=== PATIENT | female | born 1990 | race American Indian/Alaskan Native ===

== ENCOUNTER 2020-01-04 07:10 | Inpatient (IN) | payer MEDICAID ==
[2020-01-04] MEDS ORDERED: AMPICILLIN/NS 2 GM/100 ML 2 GM/100 ML BAG IV ONE (10:04)
[2020-01-04] MEDS ORDERED: fentaNYL 100 MCG/2 ML INJ IV PRN (10:04)
[2020-01-04] MEDS ORDERED: LIDOCAINE (2%) 20 MG/1 ML VIAL 20 ML MDV INFILTRATI ONE ×2 (10:04→19:37)
[2020-01-04] MEDS ORDERED: ePHEDrine SULFATE 50 MG/1 ML INJ IV PRN (10:04)
[2020-01-04] MEDS ORDERED: TERBUTALINE 1 MG/1 ML INJ SUB-Q PRN (10:04)
[2020-01-04] MEDS ORDERED: NalbUPHINE 10 MG/1 ML INJ IV PRN ×2 (10:04→13:39)
[2020-01-04] MEDS ORDERED: ONDANSETRON 4 MG/2 ML INJ IV PRN ×3 (10:04→23:17)
--- NOTE | 2020-01-04 10:05 | Ultrasound Report ---
ULTRASOUND OBSTETRIC INDICATION / CLINICAL INFORMATION: MIROSLAVA. Clinical Gestational Age (GA): TECHNIQUE: Transabdominal. COMPARISON: None available. FINDINGS: There is a single intrauterine . Heart Rate: 143 beats per minute. Estimated Weight in grams (if calculated): Estimated Weight Growth Percentile (if calculated): Position: cephalic. Amniotic Fluid Volume: Decreased Amniotic Fluid Index (MIROSLAVA) in cm (if calculated): 6.3. Maternal Adnexa: No significant abnormality. IMPRESSION: 1. Single, living intrauterine 2. MIROSLAVA 6.3 Signer Name: Bandar Love MD Signed: 01/04/2020 10:00 AM Workstation Name: [id number]
--- NOTE | 2020-01-04 10:14 | History and Physical Report ---
History of Present Illness Date of examination: 01/04/20 Date of admission: 01/04/20 10:04 Chief complaint: leaking fluid from vagina and contractions History of present illness: EDC Confirmation: 01/04/2020 Past History : 2 Term Births: 0 Premature Births: 0 Living Children: 0 Para: 0 Mult. Births: 0 Prev : 0 Prev. attempt? 0 Aborta: 1 Elect. Ab: 1 Spont. Ab: 0 Ectopics: 0 Past Medical History: Reviewed history from 12/25/2016 and no changes required: Dermoid cyst (2011) Past Surgical History: [facility] ovarian cystectomy(Dermoid) D&C: Past Medical History Surgery (Non-ob gyn): [facility] ovarian cystectomy(Dermoid) D&C: Abnormal PAP: negative RIC Exposure: negative Infertility: negative Uterine Anomaly: negative Uterine Surgery (not C/S): negative Other Gynecologic Problems: negative Social Hx: Patient is single Marital Status: single Children: Occupation: [employer] Smoking History: Patient has never smoked. Infection History HIV Risk Eval: no Hepatitis B Risk Eval: low risk Personal hx. of genital herpes: no Partner hx. of genital herpes: no TB Risk: no Genetic History Congenital Heart Defect: Ashly Disease: Thalassemia Mom: no Dad: no Neural Tube Defect Mom: no Dad: no Down's Syndrome Mom: no Dad: no Darrian-Sachs Mom: no Dad: no Sickle Cell Disease/Trait Mom: no Dad: no Hemophilia Mom: no Dad: no Muscular Dystrophy Mom: no Dad: no Cystic Fibrosis Mom: no Dad: no Benzie Chorea Mom: no Dad: no Mental Retardation Mom: no Dad: no Fragile X Mom: no Dad: no Other Genetic/Chromosomal Disorder Mom: no Dad: no Child w/other defect Mom: no Dad: no Active Medications (reviewed today): 19 ORAL TABLET CHEWABLE ( VIT-FE FUMARATE-FA) 1 po q day as directed Current Allergies (reviewed today): No known allergies Past History Past Medical History: other (see HPI) Past Surgical History: other (see HPI) 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: other (see HPI) - Obstetrical History Expected Date of Delivery: 01/04/20 Actual Gestation: 40 Week(s) 0 Day(s) : 2 Para: 0 Hx # Term Pregnancies: 0 Number of Pregnancies: 0 Spontaneous Abortions: 0 Induced : 1 Number of Living Children: 0 Medications and Allergies Allergies Allergy/AdvReac Type Severity Reaction Status Date / Time No Known Allergies Allergy Verified 01/04/20 08:02 Active Meds: Active Medications Ephedrine Sulfate (Ephedrine Sulfate) 10 mg IV Q2M PRN PRN Reason: Hypotension Fentanyl (Sublimaze) 100 mcg IV Q2H PRN PRN Reason: Pain,Severe (7-10) LABOR PAIN Oxytocin/Sodium Chloride (Pitocin/Ns 30 Unit/500ml) 30 units in 500 mls @ 4 mls/hr IV TITR TAMARA; Protocol Lactated Ringer's (Lactated Ringers) 1,000 mls @ 125 mls/hr IV DIRECT TAMARA Oxytocin/Sodium Chloride (Pitocin/Ns 30 Unit/500ml) 30 units in 500 mls @ 40 mls/hr IV TITR TAMARA; Protocol Ampicillin Sodium (Ampicillin/Ns 1 Gm/50 Ml) 1 gm in 50 mls @ 100 mls/hr IV Q4HR TAMARA; Protocol Ampicillin Sodium (Ampicillin/Ns 2 Gm/100 Ml) 2 gm in 100 mls @ 100 mls/hr IV ONCE ONE; Protocol Stop: 01/04/20 11:03 Lidocaine (Xylocaine 2%) 20 ml INFILTRATI ONCE ONE Stop: 01/04/20 10:05 Mineral Oil (Mineral Oil) 30 ml PO QHS PRN PRN Reason: Constipation Nalbuphine HCl (Nalbuphine) 10 mg IV Q2H PRN PRN Reason: Pain, Moderate (4-6) Ondansetron HCl (Zofran) 4 mg IV Q8H PRN PRN Reason: Nausea And Vomiting Terbutaline Sulfate (Brethine) 0.25 mg SUB-Q ONCE PRN PRN Reason: Hyperstimulation/Hypertonicity Review of Systems All systems: negative - Vital Signs Vital signs: Vital Signs Pulse BP 96 H 113/64 01/04/20 07:55 01/04/20 07:55 Temp Pulse Resp BP Pulse Ox 94 H 113/64 99 01/04/20 09:57 01/04/20 07:55 01/04/20 09:57 - Physical Exam Breasts: Positive: normal Cardiovascular: Regular rate Lungs: Positive: Normal air movement Abdomen: Positive: normal appearance, soft Genitourinary (Female): Positive: normal external genitalia, normal perenium Vulva: both: normal Vagina: Positive: normal moisture Uterus: Positive: normal size Anus/Rectum: Positive: normal perianal skin Extremities: Positive: normal - Obstetrical FHR: category 1 Uterine Contraction Monitor Mode: External Cervical Dilatation: 2 Cervical Effacement Percentage: 50 station: -3 Uterine Contraction Pattern: Regular Uterine Tone Measurement Phase: Contraction Uterine Contraction Intensity: Mild Results All other labs normal. Assessment and Plan 29y/o @ 40+0 weeks, admitted for labor and probable SROM (possible forebag or slow leak, pt reports bed wet with clear fluid his morning, MIROSLAVA 6), GBS + Admission orders in EMR. - Patient Problems (1) SROM (spontaneous rupture of membranes) Current Visit: Yes Status: Acute Plan to address problem: leaking, MIROSLAVA <7, GBS + (2) 40 weeks gestation of Current Visit: Yes Status: Acute (3) GBS (group B Streptococcus carrier), +RV culture, currently Current Visit: Yes Status: Acute Plan to address problem: Ampicillin q4h until delivery
[2020-01-04] MEDS ORDERED: OXYTOCIN DRIP 30 UNITS/500 ML BAG IV SCH ×3 (11:00→23:17)
[2020-01-04 11:24] LABS: Hemoglobin 9.7 gm/dl (10.1-14.3); Red Cell Distribution Width 18.9 % (13.2-15.2)
[2020-01-04 11:36] LABS: Hematocrit 31.3 % (30.3-42.9); Mean Corpuscular HGB Conc 31 % (30-34); Platelet Count 217 K/mm3 (140-440); Red Blood Count 4.56 M/mm3 (3.65-5.03)
[2020-01-04] MEDS: LACTATED RINGERS 1,000 ML IV SCH ×3 (11:40→18:30)
[2020-01-04 11:45] LABS: Mean Corpuscular Volume 69 fl (79-97)
[2020-01-04] MEDS ORDERED: DEXMEDETOMIDINE 200 MCG/2 ML VIAL IV ONE (13:20)
--- NOTE | 2020-01-04 13:37 | Anesthesia Consultation ---
Anesthesia Consult and Med Hx Date of service: 01/04/20 - Airway Anesthetic Teeth Evaluation: Good ROM Head & Neck: Adequate Mental/Hyoid Distance: Adequate Mallampati Class: Class II Intubation Access Assessment: Good - Pulmonary Exam CTA: Yes - Cardiac Exam Cardiac Exam: RRR - Pre-Operative Health Status ASA Pre-Surgery Classification: ASA2 Proposed Anesthetic Plan: Epidural - Pulmonary Hx Smoking: No Hx Asthma: No Hx Sleep Apnea: No - Cardiovascular System Hx Hypertension: No - Central Nervous System Hx Seizures: No Hx Psychiatric Problems: No - Gastrointestinal Hx Gastroesophageal Reflux Disease: No - Endocrine Hx Renal Disease: No Hx Hypothyroidism: No - Hematic Hx Anemia: No Hx Sickle Cell Disease: No - Other Systems Hx Alcohol Use: No
--- NOTE | 2020-01-04 13:38 | Progress Note ---
Labor Epidural - Labor Epidural Start Time: 13:25 Stop Time: 13:40 Performed by:: MARIO DUMONT ([facility]) Procedure: Patient is requesting a laboring epidural for laboring pain. Patient IDed, H&P reviewed, all questions and concerns were answered, and consent was signed. Timeout was performed at bedside. Patient in sitting position. Sterile prep and drape was performed. 3ml of 1% lidocaine skin wheal at L[3]- L [4]. 18- gauge Touhy epidural needle was advanced to loss of resistance with air technique. Negative CSF negative blood. Epidural catheter advanced to [12] centimeters. [-] Aspiration [-] test dose. Sterile dressing applied. Patient tolerated procedure.
[2020-01-04] MEDS ORDERED: NALOXONE 2 MG/2 ML INJ IV PRN (13:39)
[2020-01-04] MEDS ORDERED: diphenhydrAMINE 50 MG/ML VIAL IV PRN (13:39)
[2020-01-04] MEDS ORDERED: fentaNYL-BUPIV 2 MCG/ML-0.125% 200 MCG/100 ML BAG EPIDURAL SCH (14:00)
--- NOTE | 2020-01-04 14:27 | Progress Note ---
Assessment and Plan Patient comfortable after epidural placement. clear fluid very minimum noted. IUPC and ISE placed without complications. Peanut ball in place patient is in extreme right lateral lateral position. Pitocin started 4x4 every 30 mins. Anticipate vaginal delivery Issa Perrin-EMERY Au - Patient Problems (1) SROM (spontaneous rupture of membranes) Current Visit: Yes Status: Acute (2) 40 weeks gestation of Current Visit: Yes Status: Acute (3) GBS (group B Streptococcus carrier), +RV culture, currently Current Visit: Yes Status: Acute Subjective - Subjective Date of service: 01/04/20 Interval history: EDC Confirmation: 01/04/2020 Past History : 2 Term Births: 0 Premature Births: 0 Living Children: 0 Para: 0 Mult. Births: 0 Prev : 0 Prev. attempt? 0 Aborta: 1 Elect. Ab: 1 Spont. Ab: 0 Ectopics: 0 Past Medical History: Reviewed history from 12/25/2016 and no changes required: Dermoid cyst (2011) Past Surgical History: [facility] ovarian cystectomy(Dermoid) D&C: Past Medical History Surgery (Non-web design specialist): [facility] ovarian cystectomy(Dermoid) D&C: Abnormal PAP: negative RIC Exposure: negative Infertility: negative Uterine Anomaly: negative Uterine Surgery (not C/S): negative Other Gynecologic Problems: negative Social Hx: Patient is single Marital Status: single Children: Occupation: [employer] Smoking History: Patient has never smoked. Infection History HIV Risk Eval: no Hepatitis B Risk Eval: low risk Personal hx. of genital herpes: no Partner hx. of genital herpes: no TB Risk: no Genetic History Congenital Heart Defect: Ashly Disease: Thalassemia Mom: no Dad: no Neural Tube Defect Mom: no Dad: no Down's Syndrome Mom: no Dad: no Darrian-Sachs Mom: no Dad: no Sickle Cell Disease/Trait Mom: no Dad: no Hemophilia Mom: no Dad: no Muscular Dystrophy Mom: no Dad: no Cystic Fibrosis Mom: no Dad: no Clover Chorea Mom: no Dad: no Mental Retardation Mom: no Dad: no Fragile X Mom: no Dad: no Other Genetic/Chromosomal Disorder Mom: no Dad: no Child w/other defect Mom: no Dad: no Active Medications (reviewed today): 19 ORAL TABLET CHEWABLE ( VIT-FE FUMARATE-FA) 1 po q day as directed Current Allergies (reviewed today): No known allergies Patient reports: loss of fluid, movement normal Objective - Vital Signs Vital Signs: Vital Signs - 12hr 01/04/20 01/04/20 01/04/20 07:55 07:57 08:02 Temperature 98.1 F Pulse Rate 96 H 95 H 86 Respiratory 18 Rate Blood Pressure 113/64 Blood Pressure [Left] O2 Sat by Pulse 100 100 99 Oximetry 01/04/20 01/04/20 01/04/20 08:07 08:12 08:17 Temperature Pulse Rate 93 H 89 88 Respiratory Rate Blood Pressure Blood Pressure [Left] O2 Sat by Pulse 100 99 99 Oximetry 01/04/20 01/04/20 01/04/20 08:22 08:27 08:32 Temperature Pulse Rate 106 H 92 H 106 H Respiratory Rate Blood Pressure Blood Pressure [Left] O2 Sat by Pulse 98 100 99 Oximetry 01/04/20 01/04/20 01/04/20 08:37 08:42 08:47 Temperature Pulse Rate 97 H 99 H 97 H Respiratory Rate Blood Pressure Blood Pressure [Left] O2 Sat by Pulse 99 100 100 Oximetry 01/04/20 01/04/20 01/04/20 08:52 08:57 09:02 Temperature Pulse Rate 104 H 96 H 90 Respiratory Rate Blood Pressure Blood Pressure [Left] O2 Sat by Pulse 98 99 100 Oximetry 01/04/20 01/04/20 01/04/20 09:07 09:12 09:17 Temperature Pulse Rate 95 H 95 H 95 H Respiratory Rate Blood Pressure Blood Pressure [Left] O2 Sat by Pulse 99 99 99 Oximetry 01/04/20 01/04/20 01/04/20 09:22 09:27 09:32 Temperature Pulse Rate 99 H 88 101 H Respiratory Rate Blood Pressure Blood Pressure [Left] O2 Sat by Pulse 99 99 99 Oximetry 01/04/20 01/04/20 01/04/20 09:37 09:42 09:47 Temperature Pulse Rate 92 H 88 86 Respiratory Rate Blood Pressure Blood Pressure [Left] O2 Sat by Pulse 99 99 99 Oximetry 01/04/20 01/04/20 01/04/20 09:52 09:57 10:00 Temperature 98.4 F Pulse Rate 91 H 94 H 94 H Respiratory 16 Rate Blood Pressure Blood Pressure 111/66 [Left] O2 Sat by Pulse 99 99 98 Oximetry 01/04/20 01/04/20 01/04/20 10:33 10:34 10:39 Temperature Pulse Rate 89 81 93 H Respiratory Rate Blood Pressure Blood Pressure [Left] O2 Sat by Pulse 94 99 98 Oximetry 01/04/20 01/04/20 01/04/20 10:44 10:49 10:54 Temperature Pulse Rate 83 84 85 Respiratory Rate Blood Pressure Blood Pressure [Left] O2 Sat by Pulse 97 98 99 Oximetry 01/04/20 01/04/20 01/04/20 10:59 11:04 11:58 Temperature Pulse Rate 87 90 99 H Respiratory Rate Blood Pressure Blood Pressure [Left] O2 Sat by Pulse 99 98 99 Oximetry 01/04/20 01/04/20 01/04/20 12:03 12:08 12:13 Temperature Pulse Rate 88 68 91 H Respiratory Rate Blood Pressure Blood Pressure [Left] O2 Sat by Pulse 98 75 L 97 Oximetry 01/04/20 01/04/20 01/04/20 12:15 12:18 12:21 Temperature Pulse Rate 103 H 86 117 H Respiratory Rate Blood Pressure Blood Pressure [Left] O2 Sat by Pulse 87 98 89 Oximetry 01/04/20 01/04/20 01/04/20 12:23 12:28 12:33 Temperature Pulse Rate 93 H 123 H 87 Respiratory Rate Blood Pressure Blood Pressure [Left] O2 Sat by Pulse 99 99 98 Oximetry 01/04/20 01/04/20 01/04/20 12:38 12:40 12:43 Temperature Pulse Rate 92 H 120 H 94 H Respiratory Rate Blood Pressure Blood Pressure [Left] O2 Sat by Pulse 99 93 99 Oximetry 01/04/20 01/04/20 01/04/20 12:48 12:53 12:58 Temperature Pulse Rate 98 H 91 H 94 H Respiratory Rate Blood Pressure Blood Pressure [Left] O2 Sat by Pulse 99 99 98 Oximetry 01/04/20 01/04/20 01/04/20 13:03 13:07 13:08 Temperature Pulse Rate 112 H 109 H 104 H Respiratory Rate Blood Pressure Blood Pressure [Left] O2 Sat by Pulse 100 92 99 Oximetry 01/04/20 01/04/20 01/04/20 13:13 13:18 13:23 Temperature Pulse Rate 102 H 80 120 H Respiratory Rate Blood Pressure Blood Pressure [Left] O2 Sat by Pulse 100 98 98 Oximetry 01/04/20 01/04/20 01/04/20 13:27 13:28 13:29 Temperature Pulse Rate 110 H 85 102 H Respiratory Rate Blood Pressure 118/74 119/68 Blood Pressure [Left] O2 Sat by Pulse 78 L 78 L Oximetry 01/04/20 01/04/20 01/04/20 13:31 13:33 13:35 Temperature Pulse Rate 106 H 102 H 106 H Respiratory Rate Blood Pressure 120/77 119/72 124/73 Blood Pressure [Left] O2 Sat by Pulse 99 Oximetry 01/04/20 01/04/20 01/04/20 13:38 13:40 13:41 Temperature Pulse Rate 102 H 103 H 94 H Respiratory Rate Blood Pressure 125/58 109/50 97/55 Blood Pressure [Left] O2 Sat by Pulse 100 Oximetry 01/04/20 01/04/20 01/04/20 13:43 13:44 13:46 Temperature Pulse Rate 94 H 99 H 93 H Respiratory Rate Blood Pressure 89/49 84/55 Blood Pressure [Left] O2 Sat by Pulse 99 Oximetry 01/04/20 01/04/20 01/04/20 13:48 13:50 13:51 Temperature Pulse Rate 91 H 85 88 Respiratory Rate Blood Pressure 82/43 85/48 Blood Pressure [Left] O2 Sat by Pulse 98 Oximetry 01/04/20 01/04/20 01/04/20 13:53 13:57 13:58 Temperature Pulse Rate 104 H 95 H 110 H Respiratory Rate Blood Pressure 91/52 Blood Pressure [Left] O2 Sat by Pulse 98 99 Oximetry 01/04/20 01/04/20 01/04/20 14:02 14:03 14:07 Temperature Pulse Rate 106 H 105 H 111 H Respiratory Rate Blood Pressure 97/51 116/66 Blood Pressure [Left] O2 Sat by Pulse 99 Oximetry 01/04/20 01/04/20 01/04/20 14:08 14:12 14:13 Temperature Pulse Rate 103 H 100 H 112 H Respiratory Rate Blood Pressure 113/65 Blood Pressure [Left] O2 Sat by Pulse 99 99 Oximetry - Exam Breasts: deferred Cardiovascular: Regular rate Lungs: Normal air movement Abdomen: Present: normal appearance, soft, normal bowel sounds Vulva: both: normal Uterus: Present: normal, firm FHR: category 1 Uterine Contraction Monitor Mode: Internal Cervical Dilatation: 4 Cervical Effacement Percentage: 70 station: -1 Uterine Contraction Pattern: Regular - Labs Labs: Abnormal Labs 01/04/20 10:59 WBC 13.3 H Hgb 9.7 L MCV 69 L MCH 21 L RDW 18.9 H Laboratory Results - last 24 hr 01/04/20 01/04/20 01/04/20 10:59 10:59 10:59 WBC 13.3 H RBC 4.56 Hgb 9.7 L Hct 31.3 MCV 69 L MCH 21 L MCHC 31 RDW 18.9 H Plt Count 217 Syphilis IgG Antibody Nonreactive Blood Type O POSITIVE Antibody Screen Negative
[2020-01-04] MEDS: AMPICILLIN/NS 1 GM/50 ML 1 GM/50 ML BAG IV SCH ×2 (14:39→18:31)
--- NOTE | 2020-01-04 17:31 | Progress Note ---
Assessment and Plan pt is complete and pushing with ctx, early decels noted with most ctx, occasional variable with spontaneous resolution. moderate variability. - Patient Problems (1) SROM (spontaneous rupture of membranes) Current Visit: Yes Status: Acute (2) 40 weeks gestation of Current Visit: Yes Status: Acute (3) GBS (group B Streptococcus carrier), +RV culture, currently Current Visit: Yes Status: Acute Subjective - Subjective Date of service: 01/04/20 Interval history: EDC Confirmation: 01/04/2020 Past History : 2 Term Births: 0 Premature Births: 0 Living Children: 0 Para: 0 Mult. Births: 0 Prev : 0 Prev. attempt? 0 Aborta: 1 Elect. Ab: 1 Spont. Ab: 0 Ectopics: 0 Past Medical History: Reviewed history from 12/25/2016 and no changes required: Dermoid cyst (2011) Past Surgical History: Lsc ovarian cystectomy(Dermoid) D&C: Past Medical History Surgery (Non-catering convention services manager): [facility]sc ovarian cystectomy(Dermoid) D&C: Abnormal PAP: negative RIC Exposure: negative Infertility: negative Uterine Anomaly: negative Uterine Surgery (not C/S): negative Other Gynecologic Problems: negative Social Hx: Patient is single Marital Status: single Children: Occupation: [employer] Smoking History: Patient has never smoked. Infection History HIV Risk Eval: no Hepatitis B Risk Eval: low risk Personal hx. of genital herpes: no Partner hx. of genital herpes: no TB Risk: no Genetic History Congenital Heart Defect: Ashly Disease: Thalassemia Mom: no Dad: no Neural Tube Defect Mom: no Dad: no Down's Syndrome Mom: no Dad: no Darrian-Sachs Mom: no Dad: no Sickle Cell Disease/Trait Mom: no Dad: no Hemophilia Mom: no Dad: no Muscular Dystrophy Mom: no Dad: no Cystic Fibrosis Mom: no Dad: no [place] Chorea Mom: no Dad: no Mental Retardation Mom: no Dad: no Fragile X Mom: no Dad: no Other Genetic/Chromosomal Disorder Mom: no Dad: no Child w/other defect Mom: no Dad: no Active Medications (reviewed today): 19 ORAL TABLET CHEWABLE ( VIT-FE FUMARATE-FA) 1 po q day as directed Current Allergies (reviewed today): No known allergies Patient reports: new complaints (comfortable with epidural, feeling rectal pressure) Objective - Vital Signs Vital Signs: Vital Signs - 12hr 01/04/20 01/04/20 01/04/20 07:55 07:57 08:02 Temperature 98.1 F Pulse Rate 96 H 95 H 86 Respiratory 18 Rate Blood Pressure 113/64 Blood Pressure [Left] O2 Sat by Pulse 100 100 99 Oximetry 01/04/20 01/04/20 01/04/20 08:07 08:12 08:17 Temperature Pulse Rate 93 H 89 88 Respiratory Rate Blood Pressure Blood Pressure [Left] O2 Sat by Pulse 100 99 99 Oximetry 01/04/20 01/04/20 01/04/20 08:22 08:27 08:32 Temperature Pulse Rate 106 H 92 H 106 H Respiratory Rate Blood Pressure Blood Pressure [Left] O2 Sat by Pulse 98 100 99 Oximetry 01/04/20 01/04/20 01/04/20 08:37 08:42 08:47 Temperature Pulse Rate 97 H 99 H 97 H Respiratory Rate Blood Pressure Blood Pressure [Left] O2 Sat by Pulse 99 100 100 Oximetry 01/04/20 01/04/20 01/04/20 08:52 08:57 09:02 Temperature Pulse Rate 104 H 96 H 90 Respiratory Rate Blood Pressure Blood Pressure [Left] O2 Sat by Pulse 98 99 100 Oximetry 01/04/20 01/04/20 01/04/20 09:07 09:12 09:17 Temperature Pulse Rate 95 H 95 H 95 H Respiratory Rate Blood Pressure Blood Pressure [Left] O2 Sat by Pulse 99 99 99 Oximetry 01/04/20 01/04/20 01/04/20 09:22 09:27 09:32 Temperature Pulse Rate 99 H 88 101 H Respiratory Rate Blood Pressure Blood Pressure [Left] O2 Sat by Pulse 99 99 99 Oximetry 01/04/20 01/04/20 01/04/20 09:37 09:42 09:47 Temperature Pulse Rate 92 H 88 86 Respiratory Rate Blood Pressure Blood Pressure [Left] O2 Sat by Pulse 99 99 99 Oximetry 01/04/20 01/04/20 01/04/20 09:52 09:57 10:00 Temperature 98.4 F Pulse Rate 91 H 94 H 94 H Respiratory 16 Rate Blood Pressure Blood Pressure 111/66 [Left] O2 Sat by Pulse 99 99 98 Oximetry 01/04/20 01/04/20 01/04/20 10:33 10:34 10:39 Temperature Pulse Rate 89 81 93 H Respiratory Rate Blood Pressure Blood Pressure [Left] O2 Sat by Pulse 94 99 98 Oximetry 01/04/20 01/04/20 01/04/20 10:44 10:49 10:54 Temperature Pulse Rate 83 84 85 Respiratory Rate Blood Pressure Blood Pressure [Left] O2 Sat by Pulse 97 98 99 Oximetry 01/04/20 01/04/20 01/04/20 10:59 11:04 11:58 Temperature Pulse Rate 87 90 99 H Respiratory Rate Blood Pressure Blood Pressure [Left] O2 Sat by Pulse 99 98 99 Oximetry 01/04/20 01/04/20 01/04/20 12:03 12:08 12:13 Temperature Pulse Rate 88 68 91 H Respiratory Rate Blood Pressure Blood Pressure [Left] O2 Sat by Pulse 98 75 L 97 Oximetry 01/04/20 01/04/20 01/04/20 12:15 12:18 12:21 Temperature Pulse Rate 103 H 86 117 H Respiratory Rate Blood Pressure Blood Pressure [Left] O2 Sat by Pulse 87 98 89 Oximetry 01/04/20 01/04/20 01/04/20 12:23 12:28 12:33 Temperature Pulse Rate 93 H 123 H 87 Respiratory Rate Blood Pressure Blood Pressure [Left] O2 Sat by Pulse 99 99 98 Oximetry 01/04/20 01/04/20 01/04/20 12:38 12:40 12:43 Temperature Pulse Rate 92 H 120 H 94 H Respiratory Rate Blood Pressure Blood Pressure [Left] O2 Sat by Pulse 99 93 99 Oximetry 01/04/20 01/04/20 01/04/20 12:48 12:53 12:58 Temperature Pulse Rate 98 H 91 H 94 H Respiratory Rate Blood Pressure Blood Pressure [Left] O2 Sat by Pulse 99 99 98 Oximetry 01/04/20 01/04/20 01/04/20 13:03 13:07 13:08 Temperature Pulse Rate 112 H 109 H 104 H Respiratory Rate Blood Pressure Blood Pressure [Left] O2 Sat by Pulse 100 92 99 Oximetry 01/04/20 01/04/20 01/04/20 13:13 13:18 13:23 Temperature Pulse Rate 102 H 80 120 H Respiratory Rate Blood Pressure Blood Pressure [Left] O2 Sat by Pulse 100 98 98 Oximetry 01/04/20 01/04/20 01/04/20 13:27 13:28 13:29 Temperature Pulse Rate 110 H 85 102 H Respiratory Rate Blood Pressure 118/74 119/68 Blood Pressure [Left] O2 Sat by Pulse 78 L 78 L Oximetry 01/04/20 01/04/20 01/04/20 13:31 13:33 13:35 Temperature Pulse Rate 106 H 102 H 106 H Respiratory Rate Blood Pressure 120/77 119/72 124/73 Blood Pressure [Left] O2 Sat by Pulse 99 Oximetry 01/04/20 01/04/20 01/04/20 13:38 13:40 13:41 Temperature Pulse Rate 102 H 103 H 94 H Respiratory Rate Blood Pressure 125/58 109/50 97/55 Blood Pressure [Left] O2 Sat by Pulse 100 Oximetry 01/04/20 01/04/20 01/04/20 13:43 13:44 13:46 Temperature Pulse Rate 94 H 99 H 93 H Respiratory Rate Blood Pressure 89/49 84/55 Blood Pressure [Left] O2 Sat by Pulse 99 Oximetry 01/04/20 01/04/20 01/04/20 13:48 13:50 13:51 Temperature Pulse Rate 91 H 85 88 Respiratory Rate Blood Pressure 82/43 85/48 Blood Pressure [Left] O2 Sat by Pulse 98 Oximetry 01/04/20 01/04/20 01/04/20 13:53 13:57 13:58 Temperature Pulse Rate 104 H 95 H 110 H Respiratory Rate Blood Pressure 91/52 Blood Pressure [Left] O2 Sat by Pulse 98 99 Oximetry 01/04/20 01/04/20 01/04/20 14:02 14:03 14:07 Temperature Pulse Rate 106 H 105 H 111 H Respiratory Rate Blood Pressure 97/51 116/66 Blood Pressure [Left] O2 Sat by Pulse 99 Oximetry 01/04/20 01/04/20 01/04/20 14:08 14:12 14:13 Temperature Pulse Rate 103 H 100 H 112 H Respiratory Rate Blood Pressure 113/65 Blood Pressure [Left] O2 Sat by Pulse 99 99 Oximetry 01/04/20 01/04/20 01/04/20 14:18 14:23 14:28 Temperature Pulse Rate 110 H 105 H 105 H Respiratory Rate Blood Pressure 118/71 Blood Pressure [Left] O2 Sat by Pulse 98 98 98 Oximetry 01/04/20 01/04/20 01/04/20 14:34 14:39 14:44 Temperature Pulse Rate 101 H 97 H 103 H Respiratory Rate Blood Pressure 100/51 Blood Pressure [Left] O2 Sat by Pulse 99 99 98 Oximetry 01/04/20 01/04/20 01/04/20 14:49 14:50 14:54 Temperature Pulse Rate 98 H 96 H 101 H Respiratory Rate Blood Pressure 118/77 Blood Pressure [Left] O2 Sat by Pulse 100 99 Oximetry 01/04/20 01/04/20 01/04/20 14:59 15:04 15:09 Temperature Pulse Rate 93 H 94 H 100 H Respiratory Rate Blood Pressure 108/66 Blood Pressure [Left] O2 Sat by Pulse 99 98 99 Oximetry 01/04/20 01/04/20 01/04/20 15:14 15:18 15:19 Temperature Pulse Rate 95 H 99 H 104 H Respiratory Rate Blood Pressure 99/61 Blood Pressure [Left] O2 Sat by Pulse 98 99 Oximetry 01/04/20 01/04/20 01/04/20 15:24 15:29 15:33 Temperature Pulse Rate 126 H 116 H 97 H Respiratory Rate Blood Pressure 107/68 Blood Pressure [Left] O2 Sat by Pulse 99 100 Oximetry 01/04/20 01/04/20 01/04/20 15:34 15:39 15:44 Temperature Pulse Rate 86 98 H 98 H Respiratory Rate Blood Pressure Blood Pressure [Left] O2 Sat by Pulse 100 100 100 Oximetry 01/04/20 01/04/20 01/04/20 15:49 15:54 15:59 Temperature Pulse Rate 94 H 82 92 H Respiratory Rate Blood Pressure 107/63 Blood Pressure [Left] O2 Sat by Pulse 100 100 100 Oximetry 01/04/20 01/04/20 01/04/20 16:03 16:04 16:09 Temperature Pulse Rate 99 H 94 H 95 H Respiratory Rate Blood Pressure 100/57 Blood Pressure [Left] O2 Sat by Pulse 100 100 Oximetry 01/04/20 01/04/20 01/04/20 16:14 16:19 16:20 Temperature Pulse Rate 119 H 95 H 114 H Respiratory Rate Blood Pressure 134/65 Blood Pressure [Left] O2 Sat by Pulse 100 100 90 Oximetry 01/04/20 01/04/20 01/04/20 16:24 16:29 16:34 Temperature Pulse Rate 102 H 82 92 H Respiratory Rate Blood Pressure 110/70 Blood Pressure [Left] O2 Sat by Pulse 100 100 100 Oximetry 01/04/20 01/04/20 01/04/20 16:39 16:44 16:48 Temperature Pulse Rate 82 85 87 Respiratory Rate Blood Pressure 110/67 Blood Pressure [Left] O2 Sat by Pulse 100 100 Oximetry 01/04/20 01/04/20 01/04/20 16:49 16:54 16:59 Temperature Pulse Rate 90 89 96 H Respiratory Rate Blood Pressure Blood Pressure [Left] O2 Sat by Pulse 100 100 100 Oximetry 01/04/20 01/04/20 01/04/20 17:03 17:04 17:09 Temperature Pulse Rate 88 99 H 82 Respiratory Rate Blood Pressure 110/65 Blood Pressure [Left] O2 Sat by Pulse 100 100 Oximetry 01/04/20 01/04/20 01/04/20 17:14 17:16 17:18 Temperature Pulse Rate 98 H 99 H 113 H Respiratory Rate Blood Pressure 104/63 Blood Pressure [Left] O2 Sat by Pulse 100 91 Oximetry 01/04/20 01/04/20 01/04/20 17:19 17:23 17:24 Temperature Pulse Rate 101 H 102 H 116 H Respiratory Rate Blood Pressure Blood Pressure [Left] O2 Sat by Pulse 100 72 L 100 Oximetry - Exam Breasts: normal Cardiovascular: Regular rate Lungs: Normal air movement Abdomen: Present: normal appearance, soft Vulva: both: normal Uterus: Present: normal, firm, fundal height above umbilicus FHR: category 2 Uterine Contraction Monitor Mode: Internal Cervical Dilatation: 10 Cervical Effacement Percentage: 100 station: 0 Uterine Contraction Frequency (min): 2-3 Uterine Contraction Duration: 60 Uterine Contraction Pattern: Regular Uterine Tone Measurement Phase: Contraction Uterine Contraction Intensity: Strong/Firm Extremities: normal - Labs Labs: Abnormal Labs 01/04/20 10:59 WBC 13.3 H Hgb 9.7 L MCV 69 L MCH 21 L RDW 18.9 H Laboratory Results - last 24 hr 01/04/20 01/04/20 01/04/20 10:59 10:59 10:59 WBC 13.3 H RBC 4.56 Hgb 9.7 L Hct 31.3 MCV 69 L MCH 21 L MCHC 31 RDW 18.9 H Plt Count 217 Syphilis IgG Antibody Nonreactive Blood Type O POSITIVE Antibody Screen Negative
--- NOTE | 2020-01-04 17:44 | Progress Note ---
Assessment and Plan after attempting to push with ctx, cervix noted all around baby's head. Cervix very soft and pliable. Pt repositioned and will allow more time to progress as long as FHT are reassuring. - Patient Problems (1) SROM (spontaneous rupture of membranes) Current Visit: Yes Status: Acute (2) 40 weeks gestation of Current Visit: Yes Status: Acute (3) GBS (group B Streptococcus carrier), +RV culture, currently Current Visit: Yes Status: Acute Subjective - Subjective Date of service: 01/04/20 Interval history: EDC Confirmation: 01/04/2020 Past History : 2 Term Births: 0 Premature Births: 0 Living Children: 0 Para: 0 Mult. Births: 0 Prev : 0 Prev. attempt? 0 Aborta: 1 Elect. Ab: 1 Spont. Ab: 0 Ectopics: 0 Past Medical History: Reviewed history from 12/25/2016 and no changes required: Dermoid cyst (2011) Past Surgical History: [facility]sc ovarian cystectomy(Dermoid) D&C: Past Medical History Surgery (Non-color sprayer): Lsc ovarian cystectomy(Dermoid) D&C: Abnormal PAP: negative RIC Exposure: negative Infertility: negative Uterine Anomaly: negative Uterine Surgery (not C/S): negative Other Gynecologic Problems: negative Social Hx: Patient is single Marital Status: single Children: Occupation: [employer] Smoking History: Patient has never smoked. Infection History HIV Risk Eval: no Hepatitis B Risk Eval: low risk Personal hx. of genital herpes: no Partner hx. of genital herpes: no TB Risk: no Genetic History Congenital Heart Defect: Ashly Disease: Thalassemia Mom: no Dad: no Neural Tube Defect Mom: no Dad: no Down's Syndrome Mom: no Dad: no Darrian-Sachs Mom: no Dad: no Sickle Cell Disease/Trait Mom: no Dad: no Hemophilia Mom: no Dad: no Muscular Dystrophy Mom: no Dad: no Cystic Fibrosis Mom: no Dad: no [place] Chorea Mom: no Dad: no Mental Retardation Mom: no Dad: no Fragile X Mom: no Dad: no Other Genetic/Chromosomal Disorder Mom: no Dad: no Child w/other defect Mom: no Dad: no Active Medications (reviewed today): 19 ORAL TABLET CHEWABLE ( VIT-FE FUMARATE-FA) 1 po q day as directed Current Allergies (reviewed today): No known allergies Patient reports: new complaints (comfortable with epidural, feeling rectal pressure) Objective - Vital Signs Vital Signs: Vital Signs - 12hr 01/04/20 01/04/20 01/04/20 07:55 07:57 08:02 Temperature 98.1 F Pulse Rate 96 H 95 H 86 Respiratory 18 Rate Blood Pressure 113/64 Blood Pressure [Left] O2 Sat by Pulse 100 100 99 Oximetry 01/04/20 01/04/20 01/04/20 08:07 08:12 08:17 Temperature Pulse Rate 93 H 89 88 Respiratory Rate Blood Pressure Blood Pressure [Left] O2 Sat by Pulse 100 99 99 Oximetry 01/04/20 01/04/20 01/04/20 08:22 08:27 08:32 Temperature Pulse Rate 106 H 92 H 106 H Respiratory Rate Blood Pressure Blood Pressure [Left] O2 Sat by Pulse 98 100 99 Oximetry 01/04/20 01/04/20 01/04/20 08:37 08:42 08:47 Temperature Pulse Rate 97 H 99 H 97 H Respiratory Rate Blood Pressure Blood Pressure [Left] O2 Sat by Pulse 99 100 100 Oximetry 01/04/20 01/04/20 01/04/20 08:52 08:57 09:02 Temperature Pulse Rate 104 H 96 H 90 Respiratory Rate Blood Pressure Blood Pressure [Left] O2 Sat by Pulse 98 99 100 Oximetry 01/04/20 01/04/20 01/04/20 09:07 09:12 09:17 Temperature Pulse Rate 95 H 95 H 95 H Respiratory Rate Blood Pressure Blood Pressure [Left] O2 Sat by Pulse 99 99 99 Oximetry 01/04/20 01/04/20 01/04/20 09:22 09:27 09:32 Temperature Pulse Rate 99 H 88 101 H Respiratory Rate Blood Pressure Blood Pressure [Left] O2 Sat by Pulse 99 99 99 Oximetry 01/04/20 01/04/20 01/04/20 09:37 09:42 09:47 Temperature Pulse Rate 92 H 88 86 Respiratory Rate Blood Pressure Blood Pressure [Left] O2 Sat by Pulse 99 99 99 Oximetry 01/04/20 01/04/20 01/04/20 09:52 09:57 10:00 Temperature 98.4 F Pulse Rate 91 H 94 H 94 H Respiratory 16 Rate Blood Pressure Blood Pressure 111/66 [Left] O2 Sat by Pulse 99 99 98 Oximetry 01/04/20 01/04/20 01/04/20 10:33 10:34 10:39 Temperature Pulse Rate 89 81 93 H Respiratory Rate Blood Pressure Blood Pressure [Left] O2 Sat by Pulse 94 99 98 Oximetry 01/04/20 01/04/20 01/04/20 10:44 10:49 10:54 Temperature Pulse Rate 83 84 85 Respiratory Rate Blood Pressure Blood Pressure [Left] O2 Sat by Pulse 97 98 99 Oximetry 01/04/20 01/04/20 01/04/20 10:59 11:04 11:58 Temperature Pulse Rate 87 90 99 H Respiratory Rate Blood Pressure Blood Pressure [Left] O2 Sat by Pulse 99 98 99 Oximetry 01/04/20 01/04/20 01/04/20 12:03 12:08 12:13 Temperature Pulse Rate 88 68 91 H Respiratory Rate Blood Pressure Blood Pressure [Left] O2 Sat by Pulse 98 75 L 97 Oximetry 01/04/20 01/04/20 01/04/20 12:15 12:18 12:21 Temperature Pulse Rate 103 H 86 117 H Respiratory Rate Blood Pressure Blood Pressure [Left] O2 Sat by Pulse 87 98 89 Oximetry 01/04/20 01/04/20 01/04/20 12:23 12:28 12:33 Temperature Pulse Rate 93 H 123 H 87 Respiratory Rate Blood Pressure Blood Pressure [Left] O2 Sat by Pulse 99 99 98 Oximetry 01/04/20 01/04/20 01/04/20 12:38 12:40 12:43 Temperature Pulse Rate 92 H 120 H 94 H Respiratory Rate Blood Pressure Blood Pressure [Left] O2 Sat by Pulse 99 93 99 Oximetry 01/04/20 01/04/20 01/04/20 12:48 12:53 12:58 Temperature Pulse Rate 98 H 91 H 94 H Respiratory Rate Blood Pressure Blood Pressure [Left] O2 Sat by Pulse 99 99 98 Oximetry 01/04/20 01/04/20 01/04/20 13:03 13:07 13:08 Temperature Pulse Rate 112 H 109 H 104 H Respiratory Rate Blood Pressure Blood Pressure [Left] O2 Sat by Pulse 100 92 99 Oximetry 01/04/20 01/04/20 01/04/20 13:13 13:18 13:23 Temperature Pulse Rate 102 H 80 120 H Respiratory Rate Blood Pressure Blood Pressure [Left] O2 Sat by Pulse 100 98 98 Oximetry 01/04/20 01/04/20 01/04/20 13:27 13:28 13:29 Temperature Pulse Rate 110 H 85 102 H Respiratory Rate Blood Pressure 118/74 119/68 Blood Pressure [Left] O2 Sat by Pulse 78 L 78 L Oximetry 01/04/20 01/04/20 01/04/20 13:31 13:33 13:35 Temperature Pulse Rate 106 H 102 H 106 H Respiratory Rate Blood Pressure 120/77 119/72 124/73 Blood Pressure [Left] O2 Sat by Pulse 99 Oximetry 01/04/20 01/04/20 01/04/20 13:38 13:40 13:41 Temperature Pulse Rate 102 H 103 H 94 H Respiratory Rate Blood Pressure 125/58 109/50 97/55 Blood Pressure [Left] O2 Sat by Pulse 100 Oximetry 01/04/20 01/04/20 01/04/20 13:43 13:44 13:46 Temperature Pulse Rate 94 H 99 H 93 H Respiratory Rate Blood Pressure 89/49 84/55 Blood Pressure [Left] O2 Sat by Pulse 99 Oximetry 01/04/20 01/04/20 01/04/20 13:48 13:50 13:51 Temperature Pulse Rate 91 H 85 88 Respiratory Rate Blood Pressure 82/43 85/48 Blood Pressure [Left] O2 Sat by Pulse 98 Oximetry 01/04/20 01/04/20 01/04/20 13:53 13:57 13:58 Temperature Pulse Rate 104 H 95 H 110 H Respiratory Rate Blood Pressure 91/52 Blood Pressure [Left] O2 Sat by Pulse 98 99 Oximetry 01/04/20 01/04/20 01/04/20 14:02 14:03 14:07 Temperature Pulse Rate 106 H 105 H 111 H Respiratory Rate Blood Pressure 97/51 116/66 Blood Pressure [Left] O2 Sat by Pulse 99 Oximetry 01/04/20 01/04/20 01/04/20 14:08 14:12 14:13 Temperature Pulse Rate 103 H 100 H 112 H Respiratory Rate Blood Pressure 113/65 Blood Pressure [Left] O2 Sat by Pulse 99 99 Oximetry 01/04/20 01/04/20 01/04/20 14:18 14:23 14:28 Temperature Pulse Rate 110 H 105 H 105 H Respiratory Rate Blood Pressure 118/71 Blood Pressure [Left] O2 Sat by Pulse 98 98 98 Oximetry 1001/04/20 01/04/20 14:34 14:39 14:44 Temperature Pulse Rate 101 H 97 H 103 H Respiratory Rate Blood Pressure 100/51 Blood Pressure [Left] O2 Sat by Pulse 99 99 98 Oximetry 01/04/20 01/04/20 01/04/20 14:49 14:50 14:54 Temperature Pulse Rate 98 H 96 H 101 H Respiratory Rate Blood Pressure 118/77 Blood Pressure [Left] O2 Sat by Pulse 100 99 Oximetry 01/04/20 01/04/20 01/04/20 14:59 15:04 15:09 Temperature Pulse Rate 93 H 94 H 100 H Respiratory Rate Blood Pressure 108/66 Blood Pressure [Left] O2 Sat by Pulse 99 98 99 Oximetry 01/04/20 01/04/20 01/04/20 15:14 15:18 15:19 Temperature Pulse Rate 95 H 99 H 104 H Respiratory Rate Blood Pressure 99/61 Blood Pressure [Left] O2 Sat by Pulse 98 99 Oximetry 01/04/20 01/04/20 01/04/20 15:24 15:29 15:33 Temperature Pulse Rate 126 H 116 H 97 H Respiratory Rate Blood Pressure 107/68 Blood Pressure [Left] O2 Sat by Pulse 99 100 Oximetry 01/04/20 01/04/20 01/04/20 15:34 15:39 15:44 Temperature Pulse Rate 86 98 H 98 H Respiratory Rate Blood Pressure Blood Pressure [Left] O2 Sat by Pulse 100 100 100 Oximetry 01/04/20 01/04/20 01/04/20 15:49 15:54 15:59 Temperature Pulse Rate 94 H 82 92 H Respiratory Rate Blood Pressure 107/63 Blood Pressure [Left] O2 Sat by Pulse 100 100 100 Oximetry 01/04/20 01/04/20 01/04/20 16:03 16:04 16:09 Temperature Pulse Rate 99 H 94 H 95 H Respiratory Rate Blood Pressure 100/57 Blood Pressure [Left] O2 Sat by Pulse 100 100 Oximetry 01/04/20 01/04/20 01/04/20 16:14 16:19 16:20 Temperature Pulse Rate 119 H 95 H 114 H Respiratory Rate Blood Pressure 134/65 Blood Pressure [Left] O2 Sat by Pulse 100 100 90 Oximetry 01/04/20 01/04/20 01/04/20 16:24 16:29 16:34 Temperature Pulse Rate 102 H 82 92 H Respiratory Rate Blood Pressure 110/70 Blood Pressure [Left] O2 Sat by Pulse 100 100 100 Oximetry 01/04/20 01/04/20 01/04/20 16:39 16:44 16:48 Temperature Pulse Rate 82 85 87 Respiratory Rate Blood Pressure 110/67 Blood Pressure [Left] O2 Sat by Pulse 100 100 Oximetry 01/04/20 01/04/20 01/04/20 16:49 16:54 16:59 Temperature Pulse Rate 90 89 96 H Respiratory Rate Blood Pressure Blood Pressure [Left] O2 Sat by Pulse 100 100 100 Oximetry 01/04/20 01/04/20 01/04/20 17:03 17:04 17:09 Temperature Pulse Rate 88 99 H 82 Respiratory Rate Blood Pressure 110/65 Blood Pressure [Left] O2 Sat by Pulse 100 100 Oximetry 01/04/20 01/04/20 01/04/20 17:14 17:16 17:18 Temperature Pulse Rate 98 H 99 H 113 H Respiratory Rate Blood Pressure 104/63 Blood Pressure [Left] O2 Sat by Pulse 100 91 Oximetry 01/04/20 01/04/20 01/04/20 17:19 17:23 17:24 Temperature Pulse Rate 101 H 102 H 116 H Respiratory Rate Blood Pressure Blood Pressure [Left] O2 Sat by Pulse 100 72 L 100 Oximetry 01/04/20 01/04/20 17:29 17:34 Temperature Pulse Rate 149 H 113 H Respiratory Rate Blood Pressure 99/48 Blood Pressure [Left] O2 Sat by Pulse 100 99 Oximetry - Exam Cervical Dilatation: 8 Cervical Effacement Percentage: 100 station: 0 - Labs Labs: Abnormal Labs 01/04/20 10:59 WBC 13.3 H Hgb 9.7 L MCV 69 L MCH 21 L RDW 18.9 H Laboratory Results - last 24 hr 01/04/20 01/04/20 01/04/20 10:59 10:59 10:59 WBC 13.3 H RBC 4.56 Hgb 9.7 L Hct 31.3 MCV 69 L MCH 21 L MCHC 31 RDW 18.9 H Plt Count 217 Syphilis IgG Antibody Nonreactive Blood Type O POSITIVE Antibody Screen Negative
[2020-01-04] MEDS ORDERED: MINERAL OIL 30 ML ORAL LIQD ONE (19:37)
--- NOTE | 2020-01-04 20:31 | Procedure Note ---
OB Delivery Note - Delivery Date of Delivery: 01/04/20 ( Male) Special Librarian: RENETTA LOYOLA (EMERY Perrin-Dial) Estimated blood loss: 200cc - Vaginal Delivery presentation: vertex Delivery position: OA (OUMAR) Intrapartum events: none Delivery induction: none Delivery augmentation: pitocin Delivery monitor: internal FHT, internal uterine Route of delivery: Delivery placenta: spontaneous Delivery cord: 3 umbilical vessels Episiotomy: none Delivery laceration: 1st degree (no repair, hemostatic) Anesthesia: epidural Delivery comments: of live male, Delivered over a first degree laceration with no nuchal cord. Mouth bulb suctioned on mom's abdomen.Body delivered without difficulty. 7lbs 1.5 oz. Cord clamped and cut after cessation. Cord blood obtained., baby [id number]. Placenta delivered spontaneously and intact. Pitocin IVFs fundus firm, minimal bleeding. Placenta appears intact with a 3 vessel cord. Perineum and vagina inspected first degree laceration without repair. Hemostatic, EBL 200cc. Patient tolerated well mom and baby stable recovering in LDR. U. EMERY Keys - A at 1 minute: 8 (7#1.5oz) at 5 minutes: 9 Gender: Male
[2020-01-04] MEDS ORDERED: MINERAL OIL 30 ML ORAL LIQD PO PRN (22:00)
[2020-01-04] MEDS ORDERED: BENZOCAINE/MENTHOL 20/0.5% TOP SPRAY 56 GM TP PRN (23:17)
[2020-01-04] MEDS ORDERED: PROMETHAZINE 25 MG TAB PO PRN (23:17)
[2020-01-04] MEDS ORDERED: MAGNESIUM HYDROXIDE (MOM) ORAL LIQD UDC PO PRN (23:17)
[2020-01-04] MEDS ORDERED: WITCH HAZEL/ GLYCERIN PAD TP PRN (23:17)
[2020-01-04] MEDS ORDERED: LANOLIN/ZINC/DIMETHICONE (LANSINOH) 7 GM TP PRN (23:17)
[2020-01-04] MEDS ORDERED: diphenhydrAMINE 25 MG CAP PO PRN (23:17)
[2020-01-04] MEDS: DOCUSATE SODIUM 100 MG CAP PO SCH (23:34)
[2020-01-04] MEDS: FERROUS SULFATE 325 MG TAB PO SCH (23:34)
[2020-01-04] MEDS: IBUPROFEN 600 MG TAB PO SCH (23:34)
[2020-01-05] MEDS: IBUPROFEN 600 MG TAB PO SCH ×3 (05:11→18:00)
[2020-01-05] MEDS ORDERED: DIPHtheria,PERTUSSIS(ACELL),TETANUS VACCINE/PF 0.5 ML VIAL IM ONE (06:00)
--- NOTE | 2020-01-05 07:43 | Progress Note ---
Assessment and Plan - Patient Problems (1) (normal spontaneous vaginal delivery) Onset Date: ~01/04/20 Current Visit: Yes Status: Acute Plan to address problem: Pt states Motrin is helping to relieve the pain and soreness VSS FF below umb Lochia mod perineum intact H&H not resulted. Doing well @ this point s/p vag delivery P: continue pathway Advance diet and activity as tolerated. Subjective - Subjective Date of service: 01/05/20 (Pt c/o being sore) Principal diagnosis: 12hr s/p Patient reports: appetite normal, voiding normally, pain well controlled, ambulating normally [place]: doing well Objective - Vital Signs Latest vital signs: Vital Signs Temp Pulse Resp BP BP Pulse Ox 01/05/20 06:10 18 01/05/20 05:11 18 01/05/20 04:50 98.1 F 111 H 20 113/73 95 01/05/20 00:34 18 01/04/20 23:34 18 01/04/20 23:11 98.2 F 106 H 18 128/76 98 01/04/20 22:04 106 H 120/60 01/04/20 21:49 98 H 113/72 01/04/20 21:34 100 H 120/82 01/04/20 21:19 114 H 119/73 01/04/20 21:04 103 H 111/59 01/04/20 20:49 113 H 112/66 01/04/20 20:33 116 H 126/63 01/04/20 19:50 111 H 108/54 01/04/20 19:45 118 H 100 01/04/20 19:40 101 H 100 01/04/20 19:35 100 H 100 01/04/20 19:34 106 H 139/70 01/04/20 19:30 97.8 F 103 H 100 01/04/20 19:25 98 H 100 01/04/20 19:20 101 H 115/81 100 01/04/20 19:15 107 H 100 01/04/20 19:10 115 H 100 01/04/20 19:05 97 H 100 01/04/20 19:03 106 H 96/57 01/04/20 19:00 103 H 100 01/04/20 18:55 85 100 01/04/20 18:50 92 H 100 10/18/20 18:49 105 H 98/57 10/18/20 18:45 89 100 10/18/20 18:40 129 H 100 10/18/20 18:35 112 H 115/66 100 10/18/20 18:30 101 H 100 10/18/20 18:25 82 100 10/18/20 18:20 100 H 102/58 100 10/18/20 18:15 90 100 10/18/20 18:10 94 H 100 10/18/20 18:05 92 H 100 10/18/20 18:04 110 H 91/55 10/18/20 18:00 99 H 97 10/18/20 17:55 120 H 99 10/18/20 17:50 108 H 99 10/18/20 17:49 101 H 91/44 10/18/20 17:45 97 H 99 10/18/20 17:34 113 H 99/48 99 10/18/20 17:29 149 H 100 10/18/20 17:24 116 H 100 10/18/20 17:23 102 H 72 L 10/18/20 17:19 101 H 100 10/18/20 17:18 113 H 104/63 10/18/20 17:16 99 H 91 10/18/20 17:14 98 H 100 10/18/20 17:09 82 100 10/18/20 17:04 99 H 100 10/18/20 17:03 88 110/65 10/18/20 16:59 96 H 100 10/18/20 16:54 89 100 10/18/20 16:49 90 100 10/18/20 16:48 87 110/67 10/18/20 16:44 85 100 10/18/20 16:39 82 100 10/18/20 16:34 92 H 110/70 100 10/18/20 16:29 82 100 10/18/20 16:24 102 H 100 10/18/20 16:20 114 H 134/65 90 10/18/20 16:19 95 H 100 10/18/20 16:14 119 H 100 10/18/20 16:09 95 H 100 10/18/20 16:04 94 H 100 10/18/20 16:03 99 H 100/57 10/18/20 15:59 92 H 100 10/18/20 15:54 82 100 10/18/20 15:49 94 H 107/63 100 10/18/20 15:44 98 H 100 10/18/20 15:39 98 H 100 10/18/20 15:34 86 100 10/18/20 15:33 97 H 107/68 10/18/20 15:29 116 H 100 10/18/20 15:24 126 H 99 10/18/20 15:19 104 H 99 10/18/20 15:18 99 H 99/61 10/18/20 15:14 95 H 98 10/18/20 15:09 100 H 99 10/18/20 15:04 94 H 108/66 98 10/18/20 14:59 93 H 99 10/18/20 14:54 101 H 99 10/18/20 14:50 96 H 118/77 10/18/20 14:49 98 H 100 10/18/20 14:44 103 H 98 10/18/20 14:39 97 H 99 10/18/20 14:34 101 H 100/51 99 10/18/20 14:28 105 H 98 10/18/20 14:23 105 H 98 10/18/20 14:18 110 H 118/71 98 10/18/20 14:13 112 H 99 10/18/20 14:12 100 H 113/65 10/18/20 14:08 103 H 99 10/18/20 14:07 111 H 116/66 10/18/20 14:03 105 H 99 10/18/20 14:02 106 H 97/51 10/18/20 13:58 110 H 99 10/18/20 13:57 95 H 91/52 10/18/20 13:53 104 H 98 10/18/20 13:51 88 85/48 10/18/20 13:50 85 82/43 10/18/20 13:48 91 H 98 10/18/20 13:46 93 H 84/55 10/18/20 13:44 99 H 89/49 10/18/20 13:43 94 H 99 10/18/20 13:41 94 H 97/55 10/18/20 13:40 103 H 109/50 10/18/20 13:38 102 H 125/58 100 10/18/20 13:35 106 H 124/73 10/18/20 13:33 102 H 119/72 99 10/18/20 13:31 106 H 120/77 10/18/20 13:29 102 H 119/68 78 L 10/18/20 13:28 85 78 L 10/18/20 13:27 110 H 118/74 10/18/20 13:23 120 H 98 10/18/20 13:18 80 98 10/18/20 13:13 102 H 100 10/18/20 13:08 104 H 99 10/18/20 13:07 109 H 92 10/18/20 13:03 112 H 100 10/18/20 12:58 94 H 98 10/18/20 12:53 91 H 99 10/18/20 12:48 98 H 99 10/18/20 12:43 94 H 99 10/18/20 12:40 120 H 93 10/18/20 12:38 92 H 99 10/18/20 12:33 87 98 10/18/20 12:28 123 H 99 10/18/20 12:23 93 H 99 10/18/20 12:21 117 H 89 10/18/20 12:18 86 98 10/18/20 12:15 103 H 87 10/18/20 12:13 91 H 97 10/18/20 12:08 68 75 L 10/18/20 12:03 88 98 10/18/20 11:58 99 H 99 10/18/20 11:04 90 98 10/18/20 10:59 87 99 10/18/20 10:54 85 99 10/18/20 10:49 84 98 10/18/20 10:44 83 97 10/18/20 10:39 93 H 98 10/18/20 10:34 81 99 10/18/20 10:33 89 94 10/18/20 10:00 98.4 F 94 H 16 111/66 98 10/18/20 09:57 94 H 99 10/18/20 09:52 91 H 99 10/18/20 09:47 86 99 10/18/20 09:42 88 99 10/18/20 09:37 92 H 99 10/18/20 09:32 101 H 99 10/18/20 09:27 88 99 10/18/20 09:22 99 H 99 10/18/20 09:17 95 H 99 10/18/20 09:12 95 H 99 10/18/20 09:07 95 H 99 01/04/20 09:02 90 100 01/04/20 08:57 96 H 99 01/04/20 08:52 104 H 98 01/04/20 08:47 97 H 100 01/04/20 08:42 99 H 100 01/04/20 08:37 97 H 99 01/04/20 08:32 106 H 99 01/04/20 08:27 92 H 100 01/04/20 08:22 106 H 98 01/04/20 08:17 88 99 01/04/20 08:12 89 99 01/04/20 08:07 93 H 100 01/04/20 08:02 86 99 01/04/20 07:57 95 H 100 01/04/20 07:55 98.1 F 96 H 18 113/64 100 Intake and Output 01/04/20 01/05/20 01/05/20 22:59 06:59 14:59 Intake Total 771.816 360 Output Total 1200 1400 Balance -428.184 -1040 Intake: IV 771.816 AMPICILLIN/NS 1 GM/50 ML 50 1 gm In 50 ml @ 100 mls/ hr IV Q4HR TAMARA Rx#: [id number] Lactated Ringers 1,000 ml 677.083 @ 125 mls/hr IV DIRECT TAMARA Rx#:[id number] PITOCin/NS 30 UNIT/500ML 44.733 30 units In 500 ml @ 4 mls/hr IV TITR TAMARA Rx#: [id number] Oral 240 Intake, Free Water 120 Output: Urine 1200 1400 Indwelling Catheter 700 Void 500 1400 Other: Total, Intake Amount 240 Total, Output Amount 500 800 # Voids Void 1 Estimated Blood Loss 200 - Exam Breasts: Present: normal Cardiovascular: Present: Regular rate Lungs: Present: Normal air movement Abdomen: Present: normal appearance, soft Vulva: both: normal Uterus: Present: normal, fundal height at umbilicus Extremities: Present: normal Deep Tendon Reflex Grade: Normal +2 Incision: Present: normal, dry, intact - Labs Labs: Abnormal lab results 01/04/20 Range/Units 10:59 WBC 13.3 H (4.5-11.0) K/mm3 Hgb 9.7 L (10.1-14.3) gm/dl MCV 69 L (79-97) fl MCH 21 L (28-32) pg RDW 18.9 H (13.2-15.2) %
[2020-01-05 09:05] LABS: Hematocrit 24.8 % (30.3-42.9)
[2020-01-05] MEDS ORDERED: PRENATAL VIT27-FE FUMARATE-FOLIC ACID VIT TAB PO SCH (10:00)
[2020-01-05] MEDS: DOCUSATE SODIUM 100 MG CAP PO SCH ×2 (10:45→21:38)
[2020-01-05] MEDS: FERROUS SULFATE 325 MG TAB PO SCH ×2 (10:45→21:38)
--- NOTE | 2020-01-05 12:11 | Post Anesthesia Evaluation ---
- Post Anesthesia Evaluation Patient Participated: Yes Airway Patent: Yes Stable Respiratory Function: Yes Nausea/Vomiting: No Temp > 96.8F: Yes Pain Manageable: Yes Adequeate Hydration: Yes Anesthesia Complications: No Block Receding Appropriately: Yes
[2020-01-06] MEDS: IBUPROFEN 600 MG TAB PO SCH ×2 (02:26→12:36)
--- NOTE | 2020-01-06 07:53 | Discharge Summary ---
Providers - Providers Date of Admission: 01/04/20 10:04 Date of discharge: 01/06/20 (desires d/c home) Attending physician: ADONAY PENA Primary care physician: ADONAY PENA Hospitalization Reason for admission: labor Condition: Good Pertinent studies: post delivery h&H 8.0/24.8, asymptomatic anemia from acute blood loss Procedures: Hospital course: uncomplicated and course Disposition: DC- TO HOME OR SELFCARE - Discharge Diagnoses (1) (normal spontaneous vaginal delivery) Status: Acute Core Measure Documentation - Palliative Care Palliative Care/ Comfort Measures: Not Applicable - Core Measures Any of the following diagnoses?: none Exam - Constitutional Vitals: Temp Pulse Resp BP Pulse Ox 98.2 F 108 H 18 110/71 98 01/06/20 01:44 01/06/20 01:44 01/06/20 01:44 01/06/20 01:44 01/06/20 01:44 General appearance: Present: no acute distress, well-nourished - EENT Eyes: Present: PERRL ENT: hearing intact, clear oral mucosa - Neck Neck: Present: supple, normal ROM - Respiratory Respiratory effort: normal Respiratory: bilateral: CTA - Cardiovascular Rhythm: regular - Extremities Extremities: No edema - Abdominal General gastrointestinal: Present: soft, non-tender, non-distended, normal bowel sounds Female genitourinary: Present: normal - Integumentary Integumentary: Present: clear, warm, dry - Musculoskeletal Musculoskeletal: gait normal, strength equal bilaterally - Psychiatric Psychiatric: appropriate mood/affect, intact judgment & insight - Neurologic Neurologic: CNII-XII intact, moves all extremities - Additional findings Additional findings: Lochia scant, fundus firm Plan Activity: no restrictions Diet: regular Care Plan Goals: Call office to schedule appointment Call your doctor immediately for: * Fever > 100.5 * Heavy vaginal bleeding ( >1 pad per hour) * Severe persistent headache * Shortness of breath * Reddened, hot, painful area to leg or breast * Follow up with: ADONAY PENA MD [Primary Care Provider] - 7 Days (Congratulations! Please call [phone] to schedule your son's circumcision in 1 week and your visit in 4 weeks. Bring EMLA cream to you son's visit and wait for teaching. Call for any questions or concerns. ) Forms: [facility] Discharge Summary Prescriptions: Lidocain2.5%/Prilocai2.5% [Emla] 5 gm TP ONCE PRN #1 tube PRN Reason: Pain Ferrous Sulfate [Feosol 325 MG tab] 325 mg PO BID #60 tablet Ibuprofen [Motrin 800 MG tab] 800 mg PO Q8HR PRN #30 tablet PRN Reason: Pain
[2020-01-06 12:27] VITALS: BP 115/64
== END 2020-01-06 13:39 | disposition home or self-care (01) | DRG 775 ==
LOC: TRG 07:10 → APU 07:11 → LD 10:04 → TRG 10:04 → OB 22:47
PROVIDERS: ADMIT Obstetrics & Gynecology; ATTEND Obstetrics & Gynecology
PROC: 10E0XZZ Delivery of Products of Conception, External Approach (ICD-10-PCS; principal; 2020-01-04)
PROC: 10H07YZ Insertion of Other Device into Products of Conception, Via Natural or Artificial Opening (ICD-10-PCS; 2020-01-04)
PROC: 3E0R3BZ Introduction of Anesthetic Agent into Spinal Canal, Percutaneous Approach (ICD-10-PCS; 2020-01-04)
PROC: 00HU33Z Insertion of Infusion Device into Spinal Canal, Percutaneous Approach (ICD-10-PCS; 2020-01-04)
PROC: 0HQ9XZZ Repair Perineum Skin, External Approach (ICD-10-PCS; 2020-01-04)
PROC: 3E0234Z Introduction of Serum, Toxoid and Vaccine into Muscle, Percutaneous Approach (ICD-10-PCS; 2020-01-05)
DX: O99.824 Streptococcus B carrier state complicating childbirth (principal); O70.0 First degree perineal laceration during delivery; Z37.0 Single live birth; Z3A.40 40 weeks gestation of pregnancy
CPT/HCPCS: 36415; 76815; 85014; 85018; 85027; 86592; 86850; 86900; 86901; G0378; J0290; J2590; J7120